=== PATIENT | male | born 1955 | race Caucasian/White ===

== ENCOUNTER → 2017-09-22 12:46 | Outpatient (CLI) | payer MEDICARE, SELFPAY ==
[2017-09-22 13:31] LABS: Alanine Aminotransferase 55 U/L (12-78); Albumin Level 4.4 gm/dL (3.4-5.0); Alkaline Phosphatase 86 U/L (46-116); Anion Gap 12.7 mEq/L (5-15); Aspartate Amino Transferase 24 U/L (15-37); Bilirubin,Total 0.4 mg/dL (0.2-1.0); Blood Urea Nitrogen 28 mg/dL (7-18); Calcium 9.1 mg/dL (8.5-10.1); Carbon Dioxide 28 mmol/L (21.0-32.0); Chloride 103 mmol/L (98-107); Chol/HDL Ratio 3.6 (1-3.5); Cholesterol 161 mg/dL (140-200); Creatinine,Serum 1.26 mg/dL (0.70-1.30); Estimated Glomerular Filt Rate 58 ml/min (>60); GFR (African American) 71 ML/MIN (>60); Globulin 4.3 gm/dl (1.3-3.2); Glucose 109 mg/dL (74-106); HDL Cholesterol 45 mg/dL (27-67); LDL Cholesterol 87 mg/dL (0-130); Potassium 4.7 mmoL/L (3.5-5.1); Sodium 139 mmol/L (136-145); Thyroid Stimulating Hormone 2.55 uIU/ml (0.358-3.740); Total Protein,Serum 8.7 gm/dL (6.4-8.2); Triglycerides 145 mg/dL (30-200); VLDL Cholesterol 29 mg/dL (0-40)
[2017-09-23 11:39] LABS: Vitamin D 25 Hydroxy 15.6 ng/mL (30.0-100.0)
== END ==
PROVIDERS: Visit Provider Nurse Practitioner Family
DX: E78.2 Mixed hyperlipidemia (principal); E03.9 Hypothyroidism, unspecified; E11.22 Type 2 diabetes mellitus with diabetic chronic kidney disease; E55.9 Vitamin D deficiency, unspecified; I10 Essential (primary) hypertension
CPT/HCPCS: 36415; 80053; 80061; 82652; 84443

== ENCOUNTER → 2017-11-04 09:54 | Outpatient (POV) | payer MEDICARE, SELFPAY | PROVIDERS: PCP Podiatrist; Visit Provider Podiatrist | DX: Z00.00 Encounter for general adult medical examination without abnormal findings (principal) ==

== ENCOUNTER → 2018-04-21 11:22 | Outpatient (POV) | payer MEDICARE, SELFPAY | PROVIDERS: Visit Provider Podiatrist | DX: Z00.00 Encounter for general adult medical examination without abnormal findings (principal) ==

== ENCOUNTER → 2018-07-06 11:50 | Outpatient (CLI) | payer MEDICARE, SELFPAY ==
[2018-07-06 13:41] LABS: Alanine Aminotransferase 54 U/L (12-78); Albumin Level 4.1 gm/dL (3.4-5.0); Albumin/Globulin Ratio 1.1 (1.1-1.8); Alkaline Phosphatase 93 U/L (46-116); Anion Gap 16.6 mEq/L (5-15); Aspartate Amino Transferase 21 U/L (15-37); Bilirubin,Total 0.5 mg/dL (0.2-1.0); Blood Urea Nitrogen 23 mg/dL (7-18); Calcium 9.1 mg/dL (8.5-10.1); Carbon Dioxide 27 mmol/L (21.0-32.0); Chloride 103 mmol/L (98-107); Chol/HDL Ratio 3.9 (1-3.5); Cholesterol 169 mg/dL (140-200); Creatinine,Serum 1.35 mg/dL (0.70-1.30); Estimated Glomerular Filt Rate 54 ml/min (>60); GFR (African American) 65 ML/MIN (>60); Globulin 3.8 gm/dl (1.3-3.2); Glucose 93 mg/dL (74-106); HDL Cholesterol 43 mg/dL (27-67); LDL Cholesterol 95 mg/dL (0-130); Potassium 4.6 mmoL/L (3.5-5.1); Sodium 142 mmol/L (136-145); Thyroid Stimulating Hormone 2.19 uIU/ml (0.358-3.740); Total Protein,Serum 7.9 gm/dL (6.4-8.2); Triglycerides 156 mg/dL (30-200); VLDL Cholesterol 31 mg/dL (0-40)
[2018-07-06 14:08] LABS: Hemoglobin A1C 6.9 % (0.0-7.0)
[2018-07-07 13:45] LABS: Vitamin D 25 Hydroxy 15.6 ng/mL (30.0-100.0)
== END ==
PROVIDERS: Visit Provider Nurse Practitioner Family
DX: E11.22 Type 2 diabetes mellitus with diabetic chronic kidney disease (principal); E78.2 Mixed hyperlipidemia; E03.9 Hypothyroidism, unspecified; E55.9 Vitamin D deficiency, unspecified
CPT/HCPCS: 36415; 80053; 80061; 82652; 83036; 84443

== ENCOUNTER → 2019-01-04 15:45 | Outpatient (CLI) | payer MEDICARE, SELFPAY ==
[2019-01-04 19:03] LABS: Prostate Specific Ag, Diagnost 0.34 ng/mL (0.0-4.0); Thyroid Stimulating Hormone 2.88 uIU/ml (0.358-3.740)
[2019-01-06 18:03] LABS: Vitamin D 25 Hydroxy 23.4 ng/mL (30.0-100.0)
== END ==
PROVIDERS: Visit Provider Nurse Practitioner Family
DX: N40.1 Benign prostatic hyperplasia with lower urinary tract symptoms (principal); E03.9 Hypothyroidism, unspecified; E55.9 Vitamin D deficiency, unspecified
CPT/HCPCS: 36415; 82652; 84153; 84443

== ENCOUNTER → 2020-04-09 11:56 | Outpatient (CLI) | payer MEDICARE, SELFPAY ==
[2020-04-09 13:26] LABS: Anion Gap 16.2 mEq/L (5-15); Blood Urea Nitrogen 22 mg/dl (9-20); Calcium 10.3 mg/dl (8.4-10.2); Carbon Dioxide 31 mmol/L (22.0-30.0); Chloride 101 mmol/L (98-107); Chol/HDL Ratio 4.9 (1-3.5); Cholesterol 193 mg/dl (140-200); Estimated Glomerular Filt Rate 61 ml/min (>60); GFR (African American) 74 ML/MIN (>60); Glucose 97 mg/dl (74-100); HDL Cholesterol 39 mg/dl (40-60); Potassium 5.2 mmoL/L (3.5-5.1); Sodium 143 mmol/L (136-145); Triglycerides 259 mg/dl (30-150); VLDL Cholesterol 52 mg/dL (0-40)
[2020-04-09 13:37] LABS: Direct LDL Cholesterol 107.24 mg/dL (100-129)
[2020-04-09 13:55] LABS: Thyroid Stimulating Hormone 3.24 uIU/mL (0.465-4.68)
[2020-04-09 14:36] LABS: Hemoglobin A1C 7.2 % (4.0-6.0)
== END ==
PROVIDERS: Visit Provider Nurse Practitioner Family
DX: E11.69 Type 2 diabetes mellitus with other specified complication (principal)
CPT/HCPCS: 36415; 80048; 80061; 82043; 83036; 84443

== ENCOUNTER 2020-09-25 22:26 | Emergency (ER) | payer MEDICARE, SELFPAY ==
[2020-09-25 22:46] VITALS: BP 115/51; PULSE 99; RESP 18; TEMP 37.8; O2SAT 95; BMI 37.2
--- NOTE | 2020-09-25 22:50 | XR_ITS ---
PROCEDURE: XR FOOT LT MIN 3V CLINICAL INDICATION: left foot foreign body Pain and swelling COMPARISON: No exams were available for comparison FINDINGS: There is generalized vascular calcification. No acute fracture or dislocation. There is a small density present just anterior to a small calcaneal spur suggesting calcification within the plantar fascia. There is also a thin calcification dorsal to the tarsometatarsal junction on the lateral view consistent with an old avulsion fracture. Small opacity is present along the plantar surface of the foot at the phalangeal region as seen on the lateral view and may be due to a bandage artifact. No radiopaque foreign bodies apparent that would represent a screw or part of the screw that the patient stepped on. There is some soft tissue swelling along the plantar surface of the foot at the metatarsophalangeal region. The joint spaces are well-preserved. No significant degenerative/arthritic changes. No erosive changes evident. Other findings:None. IMPRESSION: As above, no acute fracture or metallic foreign body apparent. Dictated by: Tanner Sanz MD 09/26/2020 05:13 Tanner Sanz MD in [place] 09/26/2020 05:13
--- NOTE | 2020-09-25 23:01 | HMH.EDGENADL ---
ED Disposition Clinical Impression: Cellulitis, Foreign body (FB) in soft tissue Disposition: Home, Self-Care Condition on Discharge: Good Instructions: Cellulitis Additional Instructions: Return to the emergency department should the wound extended travel beyond the marked area, return for vomiting pain or any other concerns within the next 8 hours. Otherwise follow-up with your primary care physician within the next few days for wound management and reassessment Referrals: Valarie Christian APRN [Primary Care Provider] - - Critical Care Critical Care Time: No Attestation: On 09/25/20, the high probability of a clinically significant, sudden or life threatening deterioration of the following system(s) required my full and direct attention, intervention and personal management. The time I documented below is in addition to time spent performing reported procedures but includes the following listed in this critical care notation. Medical Decision Making - Medical Records Medical records reviewed: Yes: I reviewed the patient's medical records. - Noe Inquiry Pt receiving controlled substance: No Vital Signs: 09/25/20 22:46 Temperature 100.1 F H Temperature Source Oral Pulse Rate [Right Brachial] 99 H Respiratory Rate 18 Blood Pressure [Right Arm] 115/51 L Blood Pressure Mean [Right Arm] 72 Blood Pressure Source [Right Arm] Automatic Cuff 02 Sat by Pulse Oximetry 95 Oxygen Delivery Method Room Air Orders (Tests/Meds): ORDERS Category Date Time Status Foot XR left 2 views [XR foot LT 2V] Stat Exams 09/25/20 22:50 Ordered Medical Decision Narrative: 64-year-old male presents with left foot cellulitis. He is otherwise in no acute distress nontoxic appearing very comfortable in the room. I am not concerned for sepsis at this time based on history and exam. I am also not concerned for necrotizing infection as this has been a slow progression. I feel no crepitus on exam either. X-ray obtained to assess for osteomyelitis versus foreign body involvement. We will need to cover for possible Pseudomonas infection as the screw did go through his boot. X-ray read by myself shows no evidence of extensive osteomyelitis or foreign body or fracture of the toe. No tracking air in the soft tissue either. Recommended levofloxacin for Pseudomonas coverage and doxycycline for staph and strep coverage as well. Plan to treat for 14 days in the setting of diabetes but recommended that he follow-up with primary care physician early next week for reexamination especially of the ulcers. They are clean and abraded right now however he needs to keep a close eye on them. And I communicated this with him. I also used a marking pen to landy the extent of the wound and told him to come back tomorrow or Tuesday should the cellulitis extend beyond that side and he would need to come back for IV antibiotics if he fails outpatient treatment. General Adult HPI - General Chief complaint: Wound/Laceration Stated complaint: AO 0226 stepped on screw, L foot Red.swelling Time Seen by Provider: 09/25/20 22:30 Mode of Arrival: Wheelchair Limitations: No Limitations Description of Symptoms (Recalled from ER Triage Doc. by RN): Pt c/o fever of 99s and redness & open area to great toe and 2nd toe of left foot. Pt denies any pain and has h/o insulin dependent type 2 DM and HTN. Pt reports he unknowingly stepped on a screw and it embedded into the great toe. Pt's PCP informed them to complete daily epsom salt soaks and have tetanus shot, which he completed on 09/23/20. - History of Present Illness HPI narrative: 64-year-old male with history of diabetes and hypertension presents with left foot swelling and redness since he stepped on a screw a week ago. He says the screw did enter through his boot. He has been attempting to heal the wound with Epson salt and he did receive a tetanus shot already. He is now concerned that he has redness to h
[2020-09-25 23:35] VITALS: BP 120/59; PULSE 90; RESP 18; TEMP 37.8; O2SAT 96
== END 2020-09-25 23:39 | disposition home or self-care (01) ==
PROVIDERS: Emergency Provider Emergency Medicine; PCP Nurse Practitioner Family
DX: L03.032 Cellulitis of left toe (principal); I10 Essential (primary) hypertension; E11.9 Type 2 diabetes mellitus without complications; Z79.4 Long term (current) use of insulin
CPT/HCPCS: 73620; 73630; 99282

== ENCOUNTER → 2021-05-27 11:05 | Outpatient (CLI) | payer MEDICARE, SELFPAY ==
[2021-05-27 11:49] LABS: Creatinine,Urine Random 156 mg/dL (Not Estab.)
[2021-05-27 11:50] LABS: Microalbumin/Creatinine Ratio 27.8
[2021-05-27 12:29] LABS: Chloride 102 mmol/L (98-107)
[2021-05-27 12:30] LABS: Potassium 4.7 mmoL/L (3.5-5.1); Sodium 141 mmol/L (136-145)
[2021-05-27 12:32] LABS: Alanine Aminotransferase 28 U/L (12-78); Albumin Level 4.5 g/dl (3.5-5.0); Albumin/Globulin Ratio 1.3 (1.1-1.8); Alkaline Phosphatase 77 U/L (38-126); Anion Gap 13.7 mEq/L (5-15); Aspartate Amino Transferase 33 U/L (17-59); Bilirubin,Total 0.5 mg/dl (0.2-1.3); Blood Urea Nitrogen 21 mg/dl (9-20); Carbon Dioxide 30 mmol/L (22.0-30.0); Cholesterol 267 mg/dl (140-200); Estimated Glomerular Filt Rate 75 ml/min (>60); GFR (African American) 91 ML/MIN (>60); Globulin 3.4 g/dL (1.3-3.2); Total Protein,Serum 7.9 g/dl (6.3-8.2)
[2021-05-27 12:33] LABS: Calcium 9.6 mg/dl (8.4-10.2); Chol/HDL Ratio 8.3 (1-3.5); Glucose 188 mg/dl (74-100); HDL Cholesterol 32 mg/dl (40-60)
[2021-05-27 12:37] LABS: Triglycerides 465 mg/dl (30-150)
[2021-05-27 13:05] LABS: Thyroid Stimulating Hormone 4.86 uIU/mL (0.465-4.68)
== END ==
PROVIDERS: Visit Provider Nurse Practitioner Family
DX: E11.40 Type 2 diabetes mellitus with diabetic neuropathy, unspecified (principal); Z79.4 Long term (current) use of insulin
CPT/HCPCS: 36415; 80053; 80061; 82043; 82570; 84443

== ENCOUNTER → 2022-02-25 09:34 | Outpatient (CLI) | payer MEDICARE, SELFPAY ==
[2022-02-25 10:53] LABS: Microalbumin/Creatinine Ratio 47.9
[2022-02-25 10:55] LABS: Creatinine,Urine Random 106 mg/dL (Not Estab.)
[2022-02-25 10:56] LABS: Alanine Aminotransferase 34 U/L (12-78); Albumin Level 4.1 g/dl (3.5-5.0); Albumin/Globulin Ratio 1.5 (1.1-1.8); Alkaline Phosphatase 90 U/L (38-126); Anion Gap 8.5 mEq/L (5-15); Aspartate Amino Transferase 35 U/L (17-59); Bilirubin,Total 0.3 mg/dl (0.2-1.3); Blood Urea Nitrogen 17 mg/dl (9-20); Carbon Dioxide 30 mmol/L (22.0-30.0); Chloride 108 mmol/L (98-107); Chol/HDL Ratio 4.3 (1-3.5); Cholesterol 171 mg/dl (140-200); Estimated Glomerular Filt Rate 75 ml/min (>60); GFR (African American) 91 ML/MIN (>60); Globulin 2.7 g/dL (1.3-3.2); Glucose 105 mg/dl (74-100); HDL Cholesterol 40 mg/dl (40-60); Potassium 4.5 mmoL/L (3.5-5.1); Sodium 142 mmol/L (136-145); Total Protein,Serum 6.8 g/dl (6.3-8.2); Triglycerides 175 mg/dl (30-150); VLDL Cholesterol 35 mg/dL (0-40)
[2022-02-25 11:25] LABS: Thyroid Stimulating Hormone 3.57 uIU/mL (0.465-4.68)
[2022-02-26 08:31] LABS: Direct LDL Cholesterol 96 mg/dL (100-129)
== END ==
PROVIDERS: PCP Nurse Practitioner Family; Visit Provider Nurse Practitioner Family
DX: E11.9 Type 2 diabetes mellitus without complications (principal); Z79.4 Long term (current) use of insulin
CPT/HCPCS: 36415; 80053; 80061; 82043; 82570; 84443

== ENCOUNTER → 2022-09-27 11:56 | Outpatient (CLI) | payer MEDICARE, SELFPAY ==
--- NOTE | 2022-09-27 12:03 | XR_ITS ---
FINAL REPORT CLINICAL HISTORY: DYSPNEA ON EXERTION FINDINGS: Two views of the chest were obtained. The heart size and pulmonary vascularity are within normal limits. The mediastinum is normal. No acute pulmonary abnormality is identified. There is no pneumothorax. The bony thorax is intact. IMPRESSION: No active cardiopulmonary disease. Reviewed, Interpreted and Dictated by Alex Robertson III, MD Transcribed by Renée Castillo Authenticated and . [facility]
== END ==
PROVIDERS: PCP Internal Medicine Adolescent Medicine; Visit Provider Nurse Practitioner Family
DX: R06.9 Unspecified abnormalities of breathing (principal)
CPT/HCPCS: 71046

== ENCOUNTER 2022-10-19 09:37 | Emergency (ER) | payer MEDICARE, SELFPAY ==
[2022-10-19] VITALS (8 sets, daily range): BP systolic 108–159; BP diastolic 66–83; PULSE 71–81; RESP 17–18; TEMP 36.6–36.7; O2SAT 91–99; BMI 37.8
--- NOTE | 2022-10-19 09:59 | EXP.UTC ---
Discharge Plan Disposition Patient Disposition: Home, Self-Care Condition: Fair Prescriptions Prescriptions: New meclizine 25 mg tablet 25 mg PO TID PRN (Reason: dizziness) Qty: 20 0RF ondansetron 4 mg tablet,disintegrating 4 mg PO Q8H PRN (Reason: nausea and vomiting) Qty: 10 0RF No Action ergocalciferol (vitamin D2) 50,000 unit capsule 1 tab PO DAILY 28 Days Qty: 4 Label Comments: TAKE 1 CAPSULE ONCE A WEEK (SAME DAY EACH WEEK) lisinopril-hydrochlorothiazide 10-12.5 mg tablet 1 tab PO DAILY 30 Days Qty: 30 Label Comments: insulin NPH and regular human 100 UNIT/ML insulin pen 60 unit SQ DAILY Label Comments: pt takes am insulin NPH and regular human 100 UNIT/ML insulin pen 75 unit SQ HS ibuprofen 200 MG tablet 400 mg PO Q8HP PRN (Reason: As Needed For Fever Or Pain) Referrals Follow up/Referrals: Valarie Christian APRN [Primary Care Provider] - See instructions Activity Restrictions/Add. Instructions Additional Instructions/Restrictions: Antivert 3 times daily as needed for dizziness. Zofran as needed for nausea. Follow-up with primary care provider as soon as possible, call for appointment. Return emergency department if worsening dizziness, vomiting or any new symptoms. Follow-up with your safety deposit clerk. Clinical Impressions Clinical Impression: Vertigo, Vomiting, MARTIN (acute kidney injury), Acute dehydration, Generalized weakness Instructions Patient Instructions: DI for Dehydration -- Adult, DI for Vertigo, DI for Vomiting -- Adult, DI for Muscle Weakness Discharge ED Provider: Donald De La Rosa [facility] General Chief complaint: Nausea/Vomiting/Diarrhea Stated complaint: Vomiting, dizzy Time Seen by Provider: 10/19/22 09:59 History of Present Illness Provider Complaint: Patient states that he started having vomiting on Tuesday and not able to keep much down besides a little liquid since then and having some dizziness States that he has continued to have vomiting and dizziness throughout for the last 4 days and feeling worse States that he is still having dizziness and now feeling very weak Son States that this morning he acted a little disoriented and had to hold onto him to get him in the vehicle to bring him in Patient states that his stomach is sore from vomiting so much and just feels very weak and dizzy and unable to walk without someone holding to him or feels like he will fall States that he did recently have laser surgery on eyes and concerned that the strain from the vomiting may have disrupted it Related Data Home Medications Medication Instructions Recorded Confirmed ergocalciferol (vitamin D2) 1,250 1 tab PO DAILY Supplement 28 days 10/17/17 09/25/20 mcg (50,000 unit) capsule ##4 lisinopril 10 1 tab PO DAILY htn 30 days ##30 10/17/17 09/25/20 mg-hydrochlorothiazide 12.5 mg tablet ibuprofen 200 mg tablet 400 mg PO Q8HP PRN As Needed For 09/25/20 09/25/20 Fever Or Pain insulin NPH-regular 70-30 U-100 60 unit SQ DAILY Diabetes 09/25/20 09/25/20 insulin 100 unit/mL subcutaneous pen insulin NPH-regular 70-30 U-100 75 unit SQ HS Diabetes 09/25/20 09/25/20 insulin 100 unit/mL subcutaneous pen Previous Rx's Medication Instructions Recorded meclizine 25 mg tablet 25 mg PO TID PRN dizziness #20 tabs 10/19/22 ondansetron 4 mg disintegrating 4 mg PO Q8H PRN nausea and 10/19/22 tablet vomiting #10 tabs Allergies Allergy/AdvReac Type Severity Reaction Status Date / Time naproxen [NAPROXEN] Allergy Intermediate I-ITCHING Verified 08/11/19 20:41 [facility] Disclaimer: The information contained in this section may have been updated after the patient was seen, as this information can be updated by other users. Medical History (Updated 10/19/22 @ 14:44 by Donald De La Rosa MD) Diabetes Hyperlipidemia Hypertension Surgical History (Updated 10/19/22 @ 10:52 by Guerline Sauceda RN) H/O kn
--- NOTE | 2022-10-19 10:02 | PC.NURSE ---
PATIENT SENT TO ER PER Josephine SAENZ APRN FOR FURTHER EVALUATION. REPORT GIVEN TO ROBERTO BUITRAGO BY Josephine SAENZ APRN
[2022-10-19 10:23] LABS: POC Glucose,Bedside 195 (70-110)
[2022-10-19 10:34] LABS: Basophils # 0.1 K/mm3 (0-0.2); Basophils % 1.1 % (0.1-2.0); Eosinophils # 0.1 K/mm3 (0.0-0.4); Eosinophils % 1.2 % (0.1-12.0); Hematocrit 46.6 % (42.0-52.0); Hemoglobin 15.9 g/dL (14.1-18.0); Lymphocytes % 18.4 % (10-50); Mean Corpuscular HGB Conc 34.2 g/dL (31.8-35.4); Mean Corpuscular Hemoglobin 28.5 pg (27.0-31.2); Mean Corpuscular Volume 83.5 fl (80-94); Mean Platelet Volume 7.6 fl (7.4-10.4); Monocytes # 0.6 K/mm3 (0.1-1.0); Monocytes % 5.5 % (1.7-9.3); Neutrophils # 8.2 K/mm3 (1.8-7.8); Neutrophils % 73.8 % (37.0-80.0); Platelet Count 220 K/mm3 (142-424); Red Blood Count 5.58 M/mm3 (4.60-6.20); Red Cell Distribution Width 14.4 % (11.5-17.5); White Blood Count 11.1 K/mm3 (4.8-10.8)
--- NOTE | 2022-10-19 10:37 | PC.NURSE ---
DR RAGLAND AT BEDSIDE
--- NOTE | 2022-10-19 10:44 | CT_ITS ---
FINAL REPORT TECHNIQUE: Thin section axial images were obtained from skull base to vertex without contrast. Coronal reconstruction images were obtained from the axial data. Exam was performed using dose reduction technique. CLINICAL HISTORY: dizziness FINDINGS: There is no mass effect or midline shift. There is no intracranial hemorrhage. There is no hydrocephalus. Periventricular low density is likely related to changes of chronic small vessel ischemia. The basilar cisterns are preserved. The posterior fossa is without acute abnormality. The soft tissues are without acute abnormality. No acute osseous abnormality is identified. IMPRESSION: No acute intracranial abnormality. Changes suggesting chronic small vessel ischemia. If concern persists recommend MRI. Reviewed, Interpreted and Dictated by Raine Uriarte MD Transcribed by Juaquin Ram Authenticated and [facility]
[2022-10-19 10:46] LABS: Alanine Aminotransferase 40 U/L (12-78); Albumin Level 4.7 g/dl (3.5-5.0); Albumin/Globulin Ratio 1.5 (1.1-1.8); Alkaline Phosphatase 110 U/L (38-126); Anion Gap 13.5 mEq/L (5-15); Aspartate Amino Transferase 44 U/L (17-59); Bilirubin,Total 1.4 mg/dl (0.2-1.3); Blood Urea Nitrogen 23 mg/dl (9-20); Calcium 9.1 mg/dl (8.4-10.2); Carbon Dioxide 29 mmol/L (22.0-30.0); Chloride 98 mmol/L (98-107); Creatinine Clearance Estimated 106 mL/min (50-200); Estimated Glomerular Filt Rate 55 ml/min (>60); GFR (African American) 67 ML/MIN (>60); Globulin 3.2 g/dL (1.3-3.2); Glucose 200 mg/dl (74-100); Potassium 3.5 mmoL/L (3.5-5.1); Sodium 137 mmol/L (136-145); Total Protein,Serum 7.9 g/dl (6.3-8.2)
--- NOTE | 2022-10-19 10:51 | HMH.EDGENADL ---
Discharge Plan Disposition Patient Disposition: Home, Self-Care Condition: Fair Prescriptions Prescriptions: New meclizine 25 mg tablet 25 mg PO TID PRN (Reason: dizziness) Qty: 20 0RF ondansetron 4 mg tablet,disintegrating 4 mg PO Q8H PRN (Reason: nausea and vomiting) Qty: 10 0RF No Action ergocalciferol (vitamin D2) 50,000 unit capsule 1 tab PO DAILY 28 Days Qty: 4 Label Comments: TAKE 1 CAPSULE ONCE A WEEK (SAME DAY EACH WEEK) lisinopril-hydrochlorothiazide 10-12.5 mg tablet 1 tab PO DAILY 30 Days Qty: 30 Label Comments: insulin NPH and regular human 100 UNIT/ML insulin pen 60 unit SQ DAILY Label Comments: pt takes am insulin NPH and regular human 100 UNIT/ML insulin pen 75 unit SQ HS ibuprofen 200 MG tablet 400 mg PO Q8HP PRN (Reason: As Needed For Fever Or Pain) Referrals Follow up/Referrals: Valarie Christian APRN [Primary Care Provider] - See instructions Activity Restrictions/Add. Instructions Additional Instructions/Restrictions: Antivert 3 times daily as needed for dizziness. Zofran as needed for nausea. Follow-up with primary care provider as soon as possible, call for appointment. Return emergency department if worsening dizziness, vomiting or any new symptoms. Follow-up with your bonding equipment operator. Clinical Impressions Clinical Impression: Vertigo, Vomiting, MARTIN (acute kidney injury), Acute dehydration, Generalized weakness Instructions Patient Instructions: DI for Vomiting -- Adult, DI for Vertigo, DI for Muscle Weakness, DI for Dehydration -- Adult Discharge ED Provider: Donald De La Rosa Adult HPI General Chief complaint: Nausea/Vomiting/Diarrhea Stated complaint: Vomiting, dizzy Time Seen by Provider: 10/19/22 09:59 Mode of Arrival: Wheelchair Limitations: No Limitations Description of Symptoms (Recalled from ER Triage Doc. by RN): PT SENT FROM [facility] FOR FURTHER EVALUATION. PT REPORTS DARK EMESIS ON TUESDAY WITH DIARRHEA. EMESIS CONTINUED, CLEAR/WHITE TODAY. PT REPORTS WEAKNESS AND DIZZINESS History of Present Illness HPI narrative: The patient is sent from the urgent treatment center. Patient states that he started getting sick on Tuesday 4 days ago. He thought he had food poisoning. He has had multiple episodes of vomiting. He denies diarrhea. His only abdominal pain is soreness from vomiting. Denies fever. Complains of severe dizziness and weakness. Says that he is only dizzy when he gets up to move around. Describes it as feeling like motion sickness. Not currently dizzy while laying down. Denies headache. Reports general weakness causing him to have to use a walker to get to the bathroom. Needs to walk with assistance. No focal weakness. No problems with speech. His vision feels somewhat blurry, but no focal visual field defects. He has had previous eye surgery and is concerned about disruption of that due to his vomiting. Related Data Home Medications Medication Instructions Recorded Confirmed ergocalciferol (vitamin D2) 1,250 1 tab PO DAILY Supplement 28 days 10/17/17 09/25/20 mcg (50,000 unit) capsule ##4 lisinopril 10 1 tab PO DAILY htn 30 days ##30 10/17/17 09/25/20 mg-hydrochlorothiazide 12.5 mg tablet ibuprofen 200 mg tablet 400 mg PO Q8HP PRN As Needed For 09/25/20 09/25/20 Fever Or Pain insulin NPH-regular 70-30 U-100 60 unit SQ DAILY Diabetes 09/25/20 09/25/20 insulin 100 unit/mL subcutaneous pen insulin NPH-regular 70-30 U-100 75 unit SQ HS Diabetes 09/25/20 09/25/20 insulin 100 unit/mL subcutaneous pen Previous Rx's Medication Instructions Recorded meclizine 25 mg tablet 25 mg PO TID PRN dizziness #20 tabs 10/19/22 ondansetron 4 mg disintegrating 4 mg PO Q8H PRN nausea and 10/19/22 tablet vomiting #10 tabs Allergies Allergy/AdvReac Type Severity Reaction Status Date / Time naproxen [NAPROXEN] Allergy Intermediate I-ITCHING Verified 08/11/19 20:41
[2022-10-19 11:09] LABS: Troponin I < 0.01 ng/ml (0.00-0.034)
--- NOTE | 2022-10-19 11:10 | ECG_ITS ---
APPROVED REPORT Exam: Resting ECG HR:77 bpm ECG Measurements Heart Rate 77 AXES VA 151 P 60 QRSd 88 QRS -3 QT 398 T 49 QTc 430 Conclusion SINUS RHYTHM WITH SINUS ARRHYTHMIA NONSPECIFIC ST & T-WAVE ABNORMALITY BORDERLINE ECG INTERPRETATION BASED ON A DEFAULT AGE OF 41 YEARS UNCONFIRMED REPORT Electronically signed by : Wicho Fink MD 10/20/2022 01:41:01
--- NOTE | 2022-10-19 11:17 | PC.NURSE ---
PT TO CT
--- NOTE | 2022-10-19 11:21 | PC.NURSE ---
rounded on pt, family at bs
--- NOTE | 2022-10-19 11:21 | PC.NURSE ---
PT RETURNED FROM CT
--- NOTE | 2022-10-19 12:21 | PC.NURSE ---
Called radiology regarding scans not being read; they are going to look for preliminary reports at this time
--- NOTE | 2022-10-19 12:52 | PC.NURSE ---
ROUNDED ON PT AT THIS TIME, NO NEEDS VOICED. AT BEDSIDE
--- NOTE | 2022-10-19 14:29 | PC.NURSE ---
rounded on pt, pt sitting up in bed, states he is ready to go home. family at bs
--- NOTE | 2022-10-19 14:32 | PC.NURSE ---
Pt attempted to walk, a few steps and pt was stumbling, states the floor feels like it is swimming. Pt states that he might need a wheelchair, wants to go home
--- NOTE | 2022-10-19 14:34 | PC.NURSE ---
DR RAGLAND AT BEDSIDE TO REEVALUATE PT
== END 2022-10-19 14:55 | disposition home or self-care (01) ==
LOC: UTC 09:40 → ER 10:01
PROVIDERS: Emergency Provider Emergency Medicine; PCP Nurse Practitioner Family
DX: N17.9 Acute kidney failure, unspecified (principal); E86.0 Dehydration; R53.1 Weakness
CPT/HCPCS: 70450; 80053; 82962; 84484; 85025; 86850; 93005; 96360; 96374; 99284

== ENCOUNTER 2022-11-26 15:30 | Outpatient (RCR) | payer MEDICARE, SELFPAY ==
--- NOTE | 2022-11-03 16:08 | HMH.PTOPEV ---
PT Outpatient Evaluation Rehab PT Outpatient Evaluation Start: 11/03/22 15:52 Freq: Status: Active Protocol: Document 11/03/22 15:52 PHORWALTER (Rec: 11/03/22 16:08 PHORNE [id number]) E-signed By Nolan Nieto, PT Outpatient Therapy Subjective History Subjective History This is the initial PT eval for Juan Wood Jr. 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 He reports no c/o weakness or numbness. He reports intermittent feelings of dizziness, as well. He presents using a RW for ambulation this date. He has PMH of DM-II, HTN, and HLD. Chief Complaint Weakness Symptoms Relieved By Rest/Positioning Symptoms Aggravated By Walking Prior Functional Limitations None Current Functional Limitations Walking,Balance Symptom Description Activity Dependent Level of pain today (0-10) 0 Balance Eval Gait/Posture Asssessment General Gait Observation Wide Based Gait Assistive Devices Rolling / Wheeled Walker Body Alignment Posture Relaxed Nystagmus Nystagmus Presence None Timed Up and Go Test 1. Is the Timed Up and Go test result > yes or = to 12 seconds? 3. Is the Timed Up and Go Test result < no 12 seconds? Oculomotor Gaze Oculomotor Gaze Nml: Vergence Smooth Pursuit Saccades Cover/Uncover Dynamic Gait Index Test Protocol Gait Level Surface Mild Impairment Query Text: Instructions: Walk at your normal speed from here to the next landy (20'). Grading: Landy the lowest category that applies. Change in Gait Speed Normal Query Text: Instructions: Begin walking at your normal pace (for 5'), when I tell you go , walk as fast as you can (for 5'). When I tell you slow , walk as slowly as you can (for 5'). Grading: Landy the lowest category that applies. Gait with Horizontal Head Turns Mild Impairment Query Text: Instructions: Begin walking at your normal pace. When I tell you to look right , keep walking straight, but turn you head to the right. Keep looking to the right unit I tell you look left , then keep walking straight and turn your head to the left. Keep your head to the left until I tell you look straight , t
== END 2022-11-26 15:35 | disposition home or self-care (01) ==
LOC: PT 15:30
PROVIDERS: PCP Nurse Practitioner Family; Visit Provider Nurse Practitioner Family
DX: I69.398 Other sequelae of cerebral infarction (principal)
CPT/HCPCS: 97110; 97112; 97116; 97163; 97530

== ENCOUNTER → 2023-02-08 11:21 | Outpatient (CLI) | payer MEDICARE, SELFPAY ==
[2023-02-08 14:16] LABS: Microalbumin/Creatinine Ratio 16.2
[2023-02-08 14:17] LABS: Creatinine,Urine Random 154 mg/dL (Not Estab.)
[2023-02-08 15:22] LABS: Thyroid Stimulating Hormone 3.35 uIU/mL (0.465-4.68)
== END ==
PROVIDERS: PCP Nurse Practitioner Family; Visit Provider Nurse Practitioner Family
DX: E11.65 Type 2 diabetes mellitus with hyperglycemia; Z79.4 Long term (current) use of insulin
CPT/HCPCS: 36415; 82043; 82570; 84443

== ENCOUNTER → 2023-04-21 10:00 | Outpatient (CLI) | payer OTHER, SELFPAY ==
--- NOTE | 2023-04-21 10:13 | XR_ITS ---
FINAL REPORT CLINICAL HISTORY: right knee pain FINDINGS: AP, lateral and oblique views of the right knee were obtained. There is no prior exam for comparison. There is no acute osseous abnormality of the right knee. There is tri compartment degenerative joint disease, most pronounced in the medial compartment. Calcified posterior loose body is identified. There is no joint effusion. IMPRESSION: No acute osseous abnormality of the right knee. Tricompartment degenerative joint disease. Reviewed, Interpreted and Dictated by Raine Uriarte MD Transcribed by Christine Coon Authenticated and [facility]
--- NOTE | 2023-04-21 10:13 | XR_ITS ---
FINAL REPORT CLINICAL HISTORY: bilateral knee pain FINDINGS: AP, lateral and oblique views of the left knee were obtained. There is no prior exam for comparison. There is no acute osseous abnormality of the left knee. There are changes from knee arthroplasty. The soft tissues are normal. There is no joint effusion. IMPRESSION: No acute osseous abnormality of the left knee. Reviewed, Interpreted and Dictated by Raine Uriarte MD Transcribed by Christine Coon Authenticated and [facility]
== END ==
PROVIDERS: PCP Nurse Practitioner Family; Visit Provider Orthopaedic Surgery
DX: M25.561 Pain in right knee (principal); M25.562 Pain in left knee
CPT/HCPCS: 73562

== ENCOUNTER → 2023-04-29 07:50 | Outpatient (CLI) | payer OTHER, SELFPAY ==
--- NOTE | 2023-04-29 07:59 | NM_ITS ---
FINAL REPORT CLINICAL HISTORY: Lt Knee..QUESTION osteo vs fx 8;15 am 25.7 mci tc MDP injected into lt ant COMPARISON: Bilateral knees radiograph 04/21/2023 FINDINGS: 3-PHASE BONE SCAN COMPARISON: Existing relevant imaging studies: None. PROCEDURE: The patient was injected with 25.7 mCi of technetium 99M MDP injected into the left anterior knee. Limited images of the bilateral knee were obtained after a three-hour delay. FINDINGS: Blood flow phase: Symmetric blood flow to the bilateral knees. Blood pool phase: Symmetric bilateral blood pool activity. Delayed phase: Increased tracer activity at the articular surface of the right medial femoral condyle felt to represent degenerative change. Mildly increased tracer activity of the left knee which is nonspecific but favored reactive because of relative low level of activity. No other abnormal radiotracer activity identified. IMPRESSION: Mildly increased tracer activity left knee, nonspecific and favored reactive. Increased tracer activity right femoral condyle, favored degenerative. Reviewed, Interpreted and Dictated by Alex Robertson III, MD Transcribed by Sharri Chowdhury Authenticated and [facility]
== END ==
PROVIDERS: PCP Nurse Practitioner Family; Visit Provider Orthopaedic Surgery
DX: M25.562 Pain in left knee (principal)
CPT/HCPCS: 78315; A9503

== ENCOUNTER → 2023-05-02 07:34 | Day surgery (SDC) | payer OTHER, MEDICARE, SELFPAY ==
--- NOTE | 2023-05-02 07:40 | CA_ITS ---
FINAL REPORT CLINICAL HISTORY: edema x several years, HTN, HLD, DM COMPARISON: None FINDINGS: Color Doppler, duplex Doppler and compression sonography of the bilateral lower extremities was performed. There is no evidence of deep venous thrombosis from the level of the groin to the popliteal veins. The deep veins are patent and compressible. IMPRESSION: No evidence of deep venous thrombosis bilateral lower extremities from the level of the groin to the popliteal veins. The calf veins were not imaged on this exam.. Reviewed, Interpreted and Dictated by Alex Robertson III, MD Transcribed by Chloe Coats Authenticated and . [facility]
== END ==
PROVIDERS: PCP Nurse Practitioner Family; Visit Provider Internal Medicine
DX: R07.9 Chest pain, unspecified (principal); Q21.12 Patent foramen ovale; R06.00 Dyspnea, unspecified; R60.0 Localized edema
CPT/HCPCS: 93970

== ENCOUNTER 2023-05-09 09:25 | Day surgery (SDC) | payer MEDICARE, SELFPAY ==
[2023-05-06 13:48] VITALS: BMI 37.8
[2023-05-09] VITALS (8 sets, daily range): BP systolic 99–136; BP diastolic 51–72; PULSE 64–73; RESP 14–18; TEMP 36.2–36.6; O2SAT 93–100
--- NOTE | 2023-05-09 09:40 | ECG_ITS ---
APPROVED REPORT Exam: Resting ECG HR:74 bpm ECG Measurements Heart Rate 74 AXES [place] 156 P 37 QRSd 89 QRS 1 QT 380 T 32 QTc 408 Conclusion SINUS RHYTHM NORMAL ECG UNCONFIRMED REPORT Electronically signed by : Wicho Fink MD 05/09/2023 17:22:06
--- NOTE | 2023-05-09 10:07 | CA_ITS ---
APPROVED REPORT EXAM: Comprehensive 2D, Doppler, and color-flow Echocardiogram Chief Wellness Officer: Blanca Carbajal RVT Ht: 6 ft 2 in Wt: 297lbs BSA: 2.57 BP: 144/74 mmHg Indications: STROKE, PFO SEEN ON PRIOR ECHO AT [facility]OKE WORK UP,HTN,DM,EDEMA,HLD Left Ventricle The left ventricle is normal size. The left ventricular systolic function is low-normal. The left ventricular ejection fraction is within the normal range. There is normal left ventricular wall thickness. There is normal LV segmental wall motion. LVEF is 50-55%. Right Ventricle The right ventricle is normal size. The right ventricular systolic function is normal. Atria The left atrium size is normal. The right atrium size is normal. Small PFO is noted. PFO tunnel length measures 0.9 cm, tunnel width measures 0.2 cm. Agitated saline administration demonstrates an interatrial shunt, with bubbles transfer visualized through the PFO. Aortic Valve The aortic valve is normal in structure. No aortic regurgitation is present. Mitral Valve The mitral valve is normal in structure. No evidence of mitral valve stenosis. Trace mitral valve regurgitation noted. Tricuspid Valve The tricuspid valve leaflets are thin and pliable. Mild tricuspid regurgitation. RVSP is normal. Pulmonic Valve The pulmonary valve is grossly normal in structure. Great Vessels The aortic root is normal in size. The ascending aorta is normal in size. Pericardium There is no pericardial effusion. Other Information Study Quality: Adequate Conclusion Low-normal LV systolic function (LVEF 50-55%). PFO is present (tunnel length measures 0.9 cm, tunnel width measures 0.2 cm. Agitated saline administration demonstrates an interatrial shunt, with bubbles transfer visualized through the PFO). No significant valvular stenosis or regurgitation. Referral for PFO closure is recommended in the setting of presence of PFO + stroke (elevated RoPE score - 5). Electronically signed by : Alejandra Florentino MD 05/09/2023 15:06:38
[2023-05-09 10:11] LABS: POC Glucose,Bedside 196 (70-110)
[2023-05-09 10:13] LABS: Basophils # 0.1 K/mm3 (0-0.2); Basophils % 0.7 % (0.1-2.0); Eosinophils # 0.1 K/mm3 (0.0-0.4); Eosinophils % 1.4 % (0.1-12.0); Hematocrit 46.7 % (42.0-52.0); Hemoglobin 16.1 g/dL (14.1-18.0); Lymphocytes # 1.7 K/mm3 (0.7-4.5); Lymphocytes % 19.9 % (10-50); Mean Corpuscular HGB Conc 34.4 g/dL (31.8-35.4); Mean Corpuscular Hemoglobin 29.6 pg (27.0-31.2); Mean Corpuscular Volume 85.9 fl (80-94); Mean Platelet Volume 7.7 fl (7.4-10.4); Monocytes # 0.4 K/mm3 (0.1-1.0); Monocytes % 5.3 % (1.7-9.3); Neutrophils % 72.6 % (37.0-80.0); Platelet Count 156 K/mm3 (142-424); Red Blood Count 5.44 M/mm3 (4.60-6.20); Red Cell Distribution Width 14.7 % (11.5-17.5); White Blood Count 8.3 K/mm3 (4.8-10.8)
[2023-05-09 10:18] LABS: Anion Gap 12.2 mEq/L (5-15); Blood Urea Nitrogen 18 mg/dl (9-20); Calcium 9.4 mg/dl (8.4-10.2); Carbon Dioxide 29 mmol/L (22.0-30.0); Chloride 104 mmol/L (98-107); Creatinine Clearance Estimated 125 mL/min (50-200); Estimated Glomerular Filt Rate 67 ml/min (>60); GFR (African American) 81 ML/MIN (>60); Glucose 204 mg/dl (74-100); Potassium 4.2 mmoL/L (3.5-5.1); Sodium 141 mmol/L (136-145)
[2023-05-09 10:19] LABS: INR 1.11 (0.9-1.1); Prothrombin Time 11.9 seconds (10.1-12.5)
--- NOTE | 2023-05-09 10:36 | P.PNANES_ITS ---
[facility] Disclaimer: The information contained in this section may have been updated after the patient was seen, as this information can be updated by other users. Medical History Diabetes Hyperlipidemia Hypertension Surgical History H/O knee surgery Hx of appendectomy Hx of eye surgery Hx of hemorrhoidectomy Previous back surgery Family History Other No significant family history Social History Smoking Status: Never smoker alcohol intake: never substance use type: denies use current occupational status: employed Travel in the last 8 weeks: None household members: spouse housing: house [facility] Anesthesia Checklist Patient Identification Patient Identification: Arm Band, Family and Verbal (Name & ) Structural Data Admitted From: Home Planned Operative Procedure/s: KAITLYN Consent for Planned Operative Procedure(s) Verified: Yes Verified Documents: Surgical Consent and History and Physical NPO Status Verified Time NPO: 22:00 Chart Verification Results Verified: CBC, BMP, PT, PTT, INR, ECG and Chest Xray Additional verifications Fingerstick Blood Glucose: 196 Patient : No Anesthesia Reactions: No Hx Blood Transfusions: No Blood Transfusion Reaction: No Cephalosporin Allergy: No Cardiovascular Assessment Heart Sounds: S1 & S2 Pulse Rhythm: Irregular Peripheral Edema: Yes (2+ RADHA LE) Airway Assessment Mallampati Score:: Class II C-Spine Mobility Assessed: Yes TMJ Mobility Assessed: Yes Dentition: Partials (Upper/Lower. Removed. Nothing loose per pt.) Neurological Assessment Level of Consciousness: Awake, Alert and Appropriate Hx Seizures: No Numbness or tingling in extremities: No Anesthesia Plan Anesthesia Risk discussed: Yes Anesthesia Plan: Verified ASA Class: III Anesthesia Type: MAC
--- NOTE | 2023-05-09 11:51 | EXP.ANES.I ---
[facility] Anesthesia Record Part I Anesthesia Record I Intake, IV Amount: 700 Hydration: Adequate Estimated blood loss (mL): 0 Urine output (mL): 0 Blood Products used (#): none Blood Pressure: 99/51 SaO2: 93 Pulse Rate: 67 Airway Patency: Patent Respiratory Rate: 14 Temperature: 97.8 F Patient is:: Awake (Talking) and Stable Stable to PACU at:: 11:47
--- NOTE | 2023-05-09 12:08 | SUR.PHASEII ---
notified Dr. Florentino to verify med list for discharge. MD said to continue same meds.
== END 2023-05-09 12:54 | disposition home or self-care (01) ==
PROVIDERS: PCP Nurse Practitioner Family; Visit Provider Internal Medicine
DX: Q21.12 Patent foramen ovale; R06.00 Dyspnea, unspecified; R60.9 Edema, unspecified; R07.9 Chest pain, unspecified
CPT/HCPCS: 80048; 82962; 85025; 85610; 93005; 93312

== ENCOUNTER 2023-09-01 11:37 | Outpatient (CLI) | payer MEDICARE, SELFPAY ==
--- NOTE | 2023-09-01 11:38 | NM_ITS ---
APPROVED REPORT Exam: Nuclear Stress Test Indication: chest pain.soa..abn ekg Patient Location: Outpatient Stress Tech: Elizabeth DAVIS Tech:GERTRUDE Claros RT(R)(N) Ht: 6 ft 2 in Wt: 300 lbs HR: 72 bpm BP: 149/82 mmHg BSA: 2.58 m2 Rhythm: NSR TID: 1.18 BMI: 38.5 History: chest pain.soa..abn ekg Procedure: Patient received 0.4 mg of intravenous Lexiscan, resting heart rate 72 bpm, resting blood pressure 149/82 mmHg, with Lexiscan maximum heart rate achieved was 93 bpm which is 85 % of the maximum predicted heart rate and blood pressure was 149/82 mmHg. With Lexiscan, patient denied any complaint of chest pain. Cardiac Stress and Resting SPECT Images: Cardiac Stress and Resting SPECT images were obtained using technetium 99m Myoview 32.8 mCi stress and 10.55 mCi at rest. Resting and stress imaging in supine and prone position demonstrate a large-sized, moderate, partially reversible perfusion defect in the inferior and inferolateral LV son and towards the inferoapical region. The region of reversibility is noted distally. Gated imaging demonstrates mild reduction in global LV systolic function. There is moderate hypokinesis in the inferior and inferolateral LV son. LVEF is calculated at 45%. Conclusion: Large-sized, moderate, partially reversible perfusion defect in the inferior and inferolateral LV son and towards the inferoapical region. The region of reversibility is noted distally. Findings are suggestive of partial reversible ischemia. Gated imaging demonstrates mild reduction in global LV systolic function. There is moderate hypokinesis in the inferior and inferolateral LV son. LVEF is calculated at 45%. Electronically signed by : Alejandra Florentino MD 09/04/2023 15:51:14
[2023-09-01] MEDS: ISOTOPE MYOVIEW (PER STUDY) 1 DOSE IV (13:32)
[2023-09-01] MEDS: REGADENOSON 0.4MG/5ML SYRINGE 0.400000000000000022 MG IV (13:32)
[2023-09-01] MEDS: SODIUM CHLORIDE 0.9% 10ML SYR (RAD ONLY) 10 ML IV (13:33)
--- NOTE | 2023-09-01 14:16 | CA_ITS ---
APPROVED REPORT Exam: Pharmacologic Technologist: Elizabeth Campbell, Ht: 6 ft 2 in Wt: 304 lbs BSA: 2.60 m2 HR: 69 bpm BP: 149/82 mmHg Rhythm: NSR Indications: Dyspnea Medical History Medications: Aspirin,,,,, Losartan,,,,, Atorvastatin,,,,, INSULIN,,,,, Ibuprofen,,,,, Voltaren,,,,, Ozempic,,,,, Stress Test Details Test: LEXISCAN Reason for pharmacologic stress test: physical limitation. HR Resting HR: 72 bpm Max Heart Rate (APMHR): 154 bpm Max HR Achieved: 93 bpm Target HR (85% APMHR): 131 bpm % of APMHR: 60 Recovery HR: 81 bpm BP Resting BP: 149.0/82.0 mmHg Max BP: 149.0/82.0 mmHg Recovery BP: 143.0/77.0 mmHg ECG Resting ECG: NSR Stress ECG: No significant ST changes Arrhythmia: None Clinical Exercise duration: 04:03 min Highest Stage Achieved: Stress ECG Conclusion Symptoms: Mild SOA & head discomfort. No CP. Arrhythmias/Ectopy: None. ST-T Changes: No significant ST changes. Conclusion: Unremarkable Lexiscan stress. Myoview images reported separately. Test Summary REST . . . . . . . Resting REST . . . . . . . Resting REST 07:59 . . 72 . 149/ 82 . . Stage 1 01:00 . . 87 . . . . Stage 2 01:00 . . 87 . . . . Stage 3 01:00 . . 86 . 141/ 74 . . Stage 4 01:00 . . 87 . 137/ 74 . . Stage 4 01:03 . . 87 . 137/ 74 . Stop exercise at 04:03 RECOVERY 01:00 . . 85 . 126/ 72 . . RECOVERY 02:00 . . 83 . 126/ 72 . . RECOVERY 03:00 . . 81 . 145/ 77 . . RECOVERY 03:44 . . 84 . 143/ 77 . . Electronically signed by : Alejandra Florentino MD 09/04/2023 15:47:56
== END 2023-09-01 23:59 ==
LOC: RAD 11:38
PROVIDERS: PCP Nurse Practitioner Family; Visit Provider Nurse Practitioner Family
DX: I63.9 Cerebral infarction, unspecified (principal); Q21.12 Patent foramen ovale; R06.00 Dyspnea, unspecified; R60.0 Localized edema; R94.31 Abnormal electrocardiogram [ECG] [EKG]
CPT/HCPCS: 78452; 93017; 93018; A9502; J2785

== ENCOUNTER 2023-09-20 07:19 | Day surgery (SDC) | payer MEDICARE, SELFPAY ==
[2023-09-20] VITALS (13 sets, daily range): BP systolic 122–165; BP diastolic 50–94; PULSE 71–85; RESP 16–20; TEMP 37; O2SAT 92–97; BMI 38.7
--- NOTE | 2023-09-20 07:08 | IR_ITS ---
APPROVED REPORT Patient Location: Outpatient Shale Processing Technician: GERTRUDE Harrison RT (R) PROCEDURES Selective coronary angiogram Drug-eluting stent deployment to the proximal circumflex artery INDICATION Angina pectoris, Coronary artery disease, Abnormal Myoview with inferior lateral reversible ischemia, Informed consent was obtained prior to the procedure. COMPLICATIONS NONE Estimated Blood Loss: LESS THAN 10 ML TECHNIQUE One percent lidocaine used to anesthetize the right anterior aspect of the wrist. The right radial artery was accessed via the Seldinger technique. A 6 Tamazight sheath was placed in the right radial artery. 2.5 mg of Verapamil, 800 mcg of nitroglycerin, 1mg Lidocaine and 5000 U Heparin were given through the arterial sheath. The papa catheter was also used to perform selective coronary angiogram. At the end of the diagnostic angiogram therapeutic heparin was administered giving a therapeutic ACT and the guide catheter was placed in left main artery followed by wire down the circumflex artery. A 2.5 x 12 mm [place] frontier stent was deployed at 20 abby reducing the stenosis. A 3 mm x 8 mm noncompliant balloon was placed in the proximal segment and deployed at 20 abby to further post dilate the proximal segment. [place]-3 flow was present before and after the procedure. After achieving excellent angiograph results the apparatus was removed the sheath was removed and hemostasis was achieved using TR banding patient was transferred to postop holding in stable condition ANGIOGRAPHIC RESULTS The left main artery Normal The left anterior descending artery Is a small caliber vessel throughout and has proximal 10% luminal irregularities. The midportion of the LAD which is small has a 50% stenosis where the vessel is 2 mm in diameter. First diagonal artery is moderate and has proximal concentric 40% stenosis. The vessel is 1.5 mm in diameter. The second diagonal artery is long also 1.5 mm in diameter and has proximal to mid vessel concentric 70% stenoses The circumflex artery Is nondominant and has a focal eccentric proximal 80% stenosis. The distal vessel sends large Kugel collaterals to the dominant right coronary artery The right coronary artery Is dominant and proximally occluded. The distal vessel fills nearly entirely through the circumflex artery via a large Kugel collaterals The VENTURA ventriculogram reveals Not performed The left ventricular end-diastolic pressure Not measured IMPRESSION Chronically occluded dominant right coronary artery which fills primarily via severely diseased nondominant circumflex artery Severe disease in the proximal circumflex artery Successful stenting the proximal circumflex artery severe disease reduced to 0% with 1 drug-eluting stent Small caliber diffusely diseased LAD as described above which is best managed medically and is not angiographically suitable for percutaneous revascularization nor surgical revascularization because of the small caliber and diffuse atherosclerosis PLAN 1. Effient 10 mg daily plus aspirin 81 mg daily 2. LDL less than 55 to be achieved with high intensity statin 3. Aggressive risk factor modification 4. Cardiac rehabilitation 5. Avoidance of tobacco products 6. Recommend sleep study Electronically signed by : Estuardo Goramn MD 09/20/2023 10:02:49
[2023-09-20 08:30] LABS: Chloride 106 mmol/L (98-107)
[2023-09-20 08:31] LABS: Potassium 3.9 mmoL/L (3.5-5.1)
[2023-09-20 08:33] LABS: Blood Urea Nitrogen 14 mg/dl (9-20); Creatinine Clearance Estimated 128 mL/min (50-200); Estimated Glomerular Filt Rate 67 ml/min (>60); GFR (African American) 81 ML/MIN (>60)
[2023-09-20 08:34] LABS: Anion Gap 8.9 mEq/L (5-15); Calcium 9.3 mg/dl (8.4-10.2); Carbon Dioxide 29 mmol/L (22.0-30.0); Glucose 121 mg/dl (74-100); Sodium 140 mmol/L (136-145)
[2023-09-20 08:41] LABS: Basophils % 0.4 % (0.1-2.0); Eosinophils # 0.1 K/mm3 (0.0-0.4); Eosinophils % 1.1 % (0.1-12.0); Hematocrit 45.1 % (42.0-52.0); Hemoglobin 15.2 g/dL (14.1-18.0); Lymphocytes # 2.3 K/mm3 (0.7-4.5); Mean Corpuscular HGB Conc 33.7 g/dL (31.8-35.4); Mean Corpuscular Hemoglobin 29.9 pg (27.0-31.2); Mean Corpuscular Volume 88.7 fl (80-94); Mean Platelet Volume 8.2 fl (7.4-10.4); Monocytes # 0.5 K/mm3 (0.1-1.0); Monocytes % 4.9 % (1.7-9.3); Neutrophils # 6.9 K/mm3 (1.8-7.8); Neutrophils % 70.6 % (37.0-80.0); Platelet Count 177 K/mm3 (142-424); Red Blood Count 5.08 M/mm3 (4.60-6.20); Red Cell Distribution Width 15.1 % (11.5-17.5); White Blood Count 9.8 K/mm3 (4.8-10.8)
[2023-09-20] MEDS: diphenhydrAMINE 50MG/ML VIAL 50 MG IV (09:23)
[2023-09-20] MEDS: NITROGLYCERIN 800MCG/8ML SYR (CATH LAB) 800 MCG IA (09:23)
[2023-09-20] MEDS: VERAPAMIL 2.5MG/ML 2ML VIAL 2.5 MG IV (09:23)
[2023-09-20] MEDS: LIDOCAINE 1% 10ML MDV 20 ML IJ (09:24)
[2023-09-20] MEDS: 0.9 % SODIUM CHLORIDE 500 ML 25 ML IV (09:24)
[2023-09-20] MEDS: HEPARIN 1,000 UNITS/500ML NS (CATH LAB) 3000 UNIT IV (09:24)
[2023-09-20] MEDS: HEPARIN 1,000 UNITS/ML 10ML VIAL (CATH LAB) 10000 UNIT IV (10:00)
[2023-09-20] MEDS: FENTANYL 100MCG/2ML VIAL 50 MCG IV (10:01)
[2023-09-20] MEDS: MIDAZOLAM HCL 1MG/1ML 5ML VIAL 1 MG IV (10:01)
[2023-09-20] MEDS: PRASUGREL 10MG TAB 60 MG PO (10:08)
[2023-09-20] MEDS: IOPAMIDOL-370 (76%);100ML BOTTLE 110 ML IV (11:51)
[2023-09-20] MEDS: ONDANSETRON 4MG/2ML VIAL 4 MG IV (13:52)
[2023-09-20 13:56] LABS: POC Glucose,Bedside 139 (70-110)
[2023-09-20 13:57] LABS: CATHL Activated Clotting Time > 400 SEC (74-125)
[2023-09-20] MEDS: PROMETHAZINE HCL 25MG/ML 1ML VIAL 25 MG IV (14:05)
== END 2023-09-20 14:22 | disposition home or self-care (01) ==
PROVIDERS: PCP Internal Medicine Adolescent Medicine; Visit Provider Internal Medicine
DX: E11.9 Type 2 diabetes mellitus without complications (principal); E78.5 Hyperlipidemia, unspecified; I10 Essential (primary) hypertension; Q21.12 Patent foramen ovale; R06.00 Dyspnea, unspecified; R60.0 Localized edema; R94.31 Abnormal electrocardiogram [ECG] [EKG]; R94.39 Abnormal result of other cardiovascular function study; I25.118 Atherosclerotic heart disease of native coronary artery with other forms of angina pectoris; Z79.4 Long term (current) use of insulin; Z79.899 Other long term (current) drug therapy
CPT/HCPCS: 80048; 82962; 85025; 85347; 92928; 93454; 99152; C1725; C1769; C1876; C9600; J1644; J2405; Q9967

== ENCOUNTER 2024-06-11 09:26 | Outpatient (CLI) | payer MEDICARE, SELFPAY ==
[2024-06-11 09:55] LABS: Basophils # 0.1 K/mm3 (0-0.2); Basophils % 1.1 % (0.1-2.0); Eosinophils # 0.1 K/mm3 (0.0-0.4); Eosinophils % 1.5 % (0.1-12.0); Hematocrit 42.6 % (42.0-52.0); Hemoglobin 14.9 g/dL (14.1-18.0); Lymphocytes # 1.6 K/mm3 (0.7-4.5); Lymphocytes % 22.2 % (10-50); Mean Corpuscular HGB Conc 34.9 g/dL (31.8-35.4); Mean Corpuscular Hemoglobin 29.8 pg (27.0-31.2); Mean Corpuscular Volume 85.3 fl (80-94); Mean Platelet Volume 7.9 fl (7.4-10.4); Monocytes # 0.4 K/mm3 (0.1-1.0); Monocytes % 5.7 % (1.7-9.3); Neutrophils # 5.1 K/mm3 (1.8-7.8); Neutrophils % 69.5 % (37.0-80.0); Platelet Count 166 K/mm3 (142-424); Red Blood Count 4.99 M/mm3 (4.60-6.20); Red Cell Distribution Width 14.6 % (11.5-17.5); White Blood Count 7.3 K/mm3 (4.8-10.8)
[2024-06-11 10:06] LABS: Creatinine,Urine Random 247 mg/dL (Not Estab.)
[2024-06-11 10:07] LABS: Hemoglobin A1C 7.4 % (4.0-6.0)
[2024-06-11 10:08] LABS: Microalbumin/Creatinine Ratio 14.4
[2024-06-11 10:20] LABS: Alanine Aminotransferase 51 U/L (12-78); Albumin Level 4.2 g/dl (3.5-5.0); Albumin/Globulin Ratio 1.6 (1.1-1.8); Alkaline Phosphatase 90 U/L (38-126); Anion Gap 15.8 mEq/L (5-15); Aspartate Amino Transferase 32 U/L (17-59); Bilirubin,Total 0.9 mg/dl (0.2-1.3); Blood Urea Nitrogen 16 mg/dl (9-20); Calcium 9.2 mg/dl (8.4-10.2); Carbon Dioxide 23 mmol/L (22.0-30.0); Chloride 106 mmol/L (98-107); Chol/HDL Ratio 3.7 (1-3.5); Cholesterol 154 mg/dl (140-200); Estimated Glomerular Filt Rate 75 ml/min (>60); GFR (African American) 90 ML/MIN (>60); Globulin 2.6 g/dL (1.3-3.2); Glucose 220 mg/dl (74-100); HDL Cholesterol 42 mg/dl (40-60); Magnesium 1.6 mg/dl (1.6-2.3); Potassium 3.8 mmoL/L (3.5-5.1); Sodium 141 mmol/L (136-145); Total Protein,Serum 6.8 g/dl (6.3-8.2); Triglycerides 209 mg/dl (30-150); VLDL Cholesterol 42 mg/dL (0-40)
[2024-06-11 10:31] LABS: Direct LDL Cholesterol 77.62 mg/dL (100-129)
[2024-06-11 10:51] LABS: Prostate Specific Ag Screen 0.5 ng/ml (0.0-4.0); Thyroid Stimulating Hormone 4.41 uIU/mL (0.465-4.68)
== END 2024-06-11 23:59 | disposition home or self-care (01) ==
LOC: LAB 09:28
PROVIDERS: PCP Nurse Practitioner Family; Visit Provider Nurse Practitioner Family
DX: I25.10 Atherosclerotic heart disease of native coronary artery without angina pectoris (principal); E11.22 Type 2 diabetes mellitus with diabetic chronic kidney disease; Z12.5 Encounter for screening for malignant neoplasm of prostate; I10 Essential (primary) hypertension; R35.1 Nocturia; R79.89 Other specified abnormal findings of blood chemistry
CPT/HCPCS: 36415; 80053; 80061; 82043; 82570; 83036; 83735; 84443; 85025; G0103

== ENCOUNTER 2024-10-04 13:38 | Outpatient (CLI) | payer MEDICARE, SELFPAY ==
--- NOTE | 2024-10-04 13:40 | XR_ITS ---
FINAL REPORT TECHNIQUE: Left hip 3 views CLINICAL HISTORY: lt hip pain COMPARISON: None FINDINGS: LEFT HIP: 3 views of the left hip demonstrate no acute fracture or dislocation. There is mild hypertrophic change of the left lateral acetabular margin. The visualized bony structures are well aligned. No soft tissue abnormality is seen. IMPRESSION: Mild degenerative change with no acute bony abnormality. Reviewed, Interpreted and Dictated by Arnoldo Henriquez MD Transcribed by Chloe Coats Authenticated and [facility]
== END 2024-10-04 23:59 | disposition home or self-care (01) ==
LOC: RAD 13:39
PROVIDERS: PCP Nurse Practitioner Family; Visit Provider Physician Assistant Surgical
DX: M25.552 Pain in left hip (principal)
CPT/HCPCS: 73502

== ENCOUNTER 2024-10-18 10:34 | Outpatient (CLI) | payer MEDICARE, SELFPAY ==
--- NOTE | 2024-10-18 10:35 | XR_ITS ---
FINAL REPORT CLINICAL HISTORY: c/o Right knee pain COMPARISON: 04/21/2023 FINDINGS: AP, lateral and oblique views of the right knee were obtained. There is no acute osseous abnormality of the right knee. There is tricompartmental degenerative joint disease which is most pronounced in the medial compartment but not significantly changed from previous study. Small round calcifications posterior to the joint could be in a popliteal cyst. There is a curvilinear radiopaque foreign body adjacent to the fibular head which has been there since 2022. IMPRESSION: No acute osseous abnormality of the right knee. Metallic foreign body. Reviewed, Interpreted and Dictated by Raine Uriarte MD Transcribed by Sharri Chowdhury Authenticated and [facility]
== END 2024-10-18 23:59 | disposition home or self-care (01) ==
LOC: RAD 10:35
PROVIDERS: PCP Nurse Practitioner Family; Visit Provider Physician Assistant Surgical
DX: M17.11 Unilateral primary osteoarthritis, right knee (principal)
CPT/HCPCS: 73562